=== PATIENT | female | born 1995 ===

== ENCOUNTER 2022-04-11 06:18 | Inpatient (IN) | payer BC ==
[~2022-04-11 06:18] MED LIST: Bupivacaine/Epinephrine 0.25% 30 ML VIAL ONE
[2022-04-11 06:37] VITALS: BMI 36.8
[2022-04-11] MEDS ORDERED: Acetaminophen 500 MG TAB PO PRN (06:56)
[2022-04-11] MEDS ORDERED: hydrALAZINE 20 MG/ML VIAL SLOW IVP PRN (06:56)
[2022-04-11] MEDS ORDERED: Promethazine HCl 25 MG/ML VIAL IM PRN (06:56)
[2022-04-11] MEDS ORDERED: Ondansetron PF 4 MG/2 ML Vial IVP PRN (06:56)
[2022-04-11 07:21] LABS: Fetal Membranes Rupture RUPTURE DETECTED (No Rupture)
[2022-04-11] MEDS ORDERED: Azithromycin 250 MG TAB PO SCH (07:30)
[2022-04-11] MEDS: Betamet Acet/Betamet Na Ph 30 MG/5 ML VIAL IM SCH (08:06)
[2022-04-11 09:22] LABS: Mean Corpuscular HGB CONC 33.8 g/dL (32.0-36.0); Mean Corpuscular Hemoglobin 29.6 pg (27.0-33.0); Mean Corpuscular Volume 87.4 fl (81.6-98.3); Mean Platelet Volume 12.4 fl (7.4-10.4); Platelet Count 178 10x3/uL (150-450); RBC Distribution Width 13.5 % (11.5-14.5); Red Blood Cell (RBC) Count 4.06 10x6/uL (3.90-5.03); White Blood Cell (WBC) Count 8.5 10x3/uL (3.5-10.5)
[2022-04-11] MEDS ORDERED: Acetaminophen 500 MG TAB PO SCH (09:30)
[2022-04-11 09:53] LABS: HIV (1/2) Antibody/Antigen Non-Reactive (NonReactive); HIV 1/2 INDEX 0.08 S/CO (<1.00); Hep B Surf Ag Non-Reactive S/CO (NonReactive)
[2022-04-11 09:54] LABS: Syphilis Antibody Nonreactive (Nonreactive); Syphilis Antibody Index 0.02 S/CO (<1.00 Non-Reactive)
[2022-04-11 09:58] LABS: HBSAg Index 0.17 S/CO (0-0.99)
[2022-04-11 10:08] LABS: SARS-CoV-2 NAA Rapid Test Not Detected (NotDetected)
[2022-04-11] MEDS: Magnesium Sulfate 20 gm/500 ml 20 GM/500 ML BAG IVPB SCH ×2 (10:18→18:47)
[2022-04-11 11:12] LABS: Bilirubin Neg (Negative); Blood, Urine 10 (Negative); Clarity Clear (Clear); Glucose, Urine (Dipstick) Normal (Negative); Ketone, Urine Negative (Negative); Leukocyte Negative (Negative); Nitrite Negative (Negative); Protein, Urine (Dipstick) Negative (Neg-Trace); Specific Gravity, Urine 1.015 (1.002-1.036); Urobilinogen Normal mg/dL (Less than 2)
[2022-04-11 11:17] LABS: Urine Culture Reflex No No
[2022-04-11 11:21] LABS: Bacteria/HPF None Seen HPF (None Seen); RBC/HPF 0-3 HPF (0-3); Squamous Epithelial None Seen HPF (0-3); WBC/HPF None Seen HPF (0-3)
[2022-04-11] MEDS ORDERED: AMPicillin 2 GM in Sodium Chloride 0.9% 100 ML IVPB SCH (12:00)
[2022-04-11] MEDS: Ampicillin 2 GM in Sodium Chloride 0.9% 100 ML IVPB SCH ×3 (12:09→23:55)
[2022-04-11] MEDS ORDERED: Calcium Carbonate 500 MG ChewTAB PO PRN ×2 (20:39→21:32)
[2022-04-11] MEDS: Zolpidem Tartrate 5 MG TAB PO PRN (23:55)
[2022-04-12] MEDS: Magnesium Sulfate 20 gm/500 ml 20 GM/500 ML BAG IVPB SCH ×2 (05:04→14:58)
[2022-04-12] MEDS: Ampicillin 2 GM in Sodium Chloride 0.9% 100 ML IVPB SCH ×3 (06:49→16:20)
[2022-04-12] MEDS: Lactated Ringer's 1,000 ML IV SCH (06:50)
[2022-04-12] MEDS: Betamet Acet/Betamet Na Ph 30 MG/5 ML VIAL IM SCH (08:35)
[2022-04-12 17:21] LABS: Chlam.trachomatis by PCR,Urine Not Detected (NotDetected)
[2022-04-12] MEDS: Zolpidem Tartrate 5 MG TAB PO PRN (21:30)
[2022-04-13] MEDS: Ampicillin 2 GM in Sodium Chloride 0.9% 100 ML IVPB SCH ×2 (00:16→06:40)
[2022-04-13] MEDS: Magnesium Sulfate 20 gm/500 ml 20 GM/500 ML BAG IVPB SCH (01:02)
[2022-04-13] MEDS: Lactated Ringer's 1,000 ML IV SCH ×3 (05:59→18:26)
[2022-04-13] MEDS: Betamet Acet/Betamet Na Ph 30 MG/5 ML VIAL IM SCH (08:29)
[2022-04-13] MEDS: AMOXicillin 250 MG CAP PO SCH ×3 (09:32→20:49)
[2022-04-13] MEDS: hydrOXYzine Pamoate 25 mg Capsule PO PRN (10:07)
[2022-04-13] MEDS ORDERED: Fentanyl 2 mcg/Bup 0.1% Cadd 100 ML ONE (22:36)
[2022-04-13] MEDS ORDERED: Acetaminophen 325 MG TAB PO PRN (22:44)
[2022-04-13] MEDS ORDERED: diphenhydrAMINE 50 MG/ML VIAL IVP PRN (22:44)
[2022-04-13] MEDS ORDERED: Moisturizing Cream (Eucerin) 113 GM JAR TOP PRN (22:44)
[2022-04-13] MEDS ORDERED: ePHEDrine Sulfate 50 MG/10 ML VIAL SLOW IVP PRN (22:44)
[2022-04-13] MEDS ORDERED: Ondansetron PF 4 MG/2 ML Vial IVP PRN (22:44)
[2022-04-13] MEDS ORDERED: Naloxone HCl 0.4 mg/ml Vial IVP PRN ×2 (22:44)
[2022-04-13] MEDS ORDERED: Lactated Ringer's 500 ML IV PRN (22:44)
[2022-04-13] MEDS ORDERED: Fentanyl 100 MCG/2 ML VIAL ONE (22:44)
[2022-04-13] MEDS ORDERED: Promethazine HCl 25 MG/ML VIAL IM PRN (22:44)
[2022-04-13] MEDS ORDERED: Fentanyl 2 mcg/Bupivacaine 0.1% Cassette 100 ML EPIDURAL SCH (22:45)
[2022-04-13] MEDS ORDERED: Communication Order-Pharmacy FS SCH (22:45)
[2022-04-14] MEDS ORDERED: Penicillin G Potassium 5 MILL.UNITS VIAL ONE (01:14)
[2022-04-14] MEDS ORDERED: Penicillin G Potassium 5 MILL.UNITS in Sodium Chloride 0.9% 100 ML IVPB SCH (01:15)
[2022-04-14] MEDS ORDERED: Lidocaine 1% PF 10 ML AMP ONE (01:48)
[2022-04-14] MEDS ORDERED: NS w/ Oxytocin 30 units 500 ML ONE ×2 (01:49→03:53)
[2022-04-14] MEDS ORDERED: Lanolin Ointment 7 GM TUBE TOP PRN (04:11)
[2022-04-14] MEDS ORDERED: Ondansetron PF 4 MG/2 ML Vial IVP PRN (04:11)
[2022-04-14] MEDS ORDERED: hydrALAZINE 20 MG/ML VIAL SLOW IVP PRN (04:11)
[2022-04-14] MEDS ORDERED: Benzocaine-Menthol 82.5 ML CAN TOP PRN (04:11)
[2022-04-14] MEDS ORDERED: Misoprostol 200 MCG TAB VAG PRN (04:11)
[2022-04-14] MEDS ORDERED: Preparation H Ointment 28 GM TUBE PR PRN (04:11)
[2022-04-14] MEDS ORDERED: Milk Of Magnesia 30 ML UDCUP PO PRN (04:11)
[2022-04-14] MEDS ORDERED: Methylergonovine 0.2 MG/ML VIAL IM PRN (04:11)
[2022-04-14] MEDS ORDERED: NS w/ Oxytocin 30 units 500 ML IV SCH (04:11)
[2022-04-14] MEDS ORDERED: HYDROcodone/Acetaminophen 5/325 mg Tablet PO PRN ×2 (04:11)
[2022-04-14] MEDS ORDERED: Bisacodyl 10 MG SUPP PR PRN (04:11)
[2022-04-14] MEDS ORDERED: Penicillin G 2.5 MILL.units 50 ML IVPB SCH (05:00)
[2022-04-14] MEDS: Ibuprofen 800 MG TAB PO SCH ×3 (08:08→21:11)
[2022-04-14] MEDS ORDERED: Famotidine/PF 20 mg/2ml Vial SLOW IVP SCH (09:00)
[2022-04-14] MEDS: Ferrous Sulfate 325 MG TAB PO SCH ×2 (10:08→18:25)
[2022-04-14] MEDS: Prenatal Vitamin 1 TAB PO SCH (10:08)
[2022-04-14] MEDS: Docusate 100 MG CAP PO SCH ×2 (10:08→21:12)
[2022-04-15] MEDS: Ibuprofen 800 MG TAB PO SCH ×3 (05:12→21:43)
[2022-04-15] MEDS: Docusate 100 MG CAP PO SCH ×2 (08:51→21:43)
[2022-04-15] MEDS: Prenatal Vitamin 1 TAB PO SCH (08:51)
[2022-04-15] MEDS: Ferrous Sulfate 325 MG TAB PO SCH ×2 (09:27→16:32)
[2022-04-15] MEDS: hydrOXYzine Pamoate 25 mg Capsule PO PRN (13:30)
[2022-04-16] MEDS: Ibuprofen 800 MG TAB PO SCH ×2 (05:16→13:17)
[2022-04-16] MEDS: Docusate 100 MG CAP PO SCH (08:44)
[2022-04-16] MEDS: Ferrous Sulfate 325 MG TAB PO SCH ×2 (08:44→16:29)
[2022-04-16] MEDS: Prenatal Vitamin 1 TAB PO SCH (08:44)
[2022-04-16 11:15] VITALS: BP 108/63; TEMP 98.4
[2022-04-16 13:20] LABS: Hemoglobin 11.6 g/dL (12.0-15.5)
== END 2022-04-16 17:00 | disposition home or self-care (01) | DRG 805 ==
LOC: CSHLD/OP 06:18 → CSHLD 08:03 → CSHANTE 04-13 18:15 → CSHLD 04-13 22:31 → CSHPED 04-14 05:40
PROVIDERS: ADMIT Obstetrics & Gynecology; ATTEND Obstetrics & Gynecology
PROC: 10E0XZZ Delivery of Products of Conception, External Approach (ICD-10-PCS; principal; 2022-04-14)
DX: O42.013 Preterm premature rupture of membranes, onset of labor within 24 hours of rupture, third trimester (principal); O60.14X0 Preterm labor third trimester with preterm delivery third trimester, not applicable or unspecified; Z37.0 Single live birth; Z3A.30 30 weeks gestation of pregnancy; Z20.822 Contact with and (suspected) exposure to COVID-19; Z90.49 Acquired absence of other specified parts of digestive tract; Z79.899 Other long term (current) drug therapy; O71.82 Other specified trauma to perineum and vulva; K21.9 Gastro-esophageal reflux disease without esophagitis; F41.9 Anxiety disorder, unspecified; O99.62 Diseases of the digestive system complicating childbirth; O99.344 Other mental disorders complicating childbirth; F32.A Depression, unspecified
CPT/HCPCS: 36415; 51702; 76819; 81001; 84112; 85014; 85018; 85027; 86780; 86850; 86900; 86901; 87081; 87340; 87389; 87491; 87591; 88307; 93005; 93010; 99285; J0290; J0702; J2590; J3475; J3490; J7120; Q0177; S0028; U0002